=== PATIENT | female | born 1940 | race Caucasian/White ===

== ENCOUNTER 2016-10-19 00:23 | Emergency (ER) | payer MEDICARE, OTHER ==
[2016-10-19] MEDS ORDERED: LIDOCAINE VIS-MYLANTA 30 ML UD PO ONE ×2 (00:44→00:48)
[2016-10-19 00:57] VITALS: TEMP 98.3; O2SAT 95
[2016-10-19] MEDS ORDERED: SUCRALFATE 1 GM/10 ML 1 GM UD PO ONE (01:09)
--- NOTE | 2016-10-19 01:12 | ED.PDOC ---
History of Present Illness - General Chief Complaint: Abdominal Pain Stated Complaint: epigastric pain, chest pressure, back pain Time Seen by Provider: 10/19/16 00:40 Source: patient Exam Limitations: no limitations - History of Present Illness Initial Comments: the patient is a 76-year-old female presenting to the emergency room secondary to epigastric discomfort that started in the left upper quadrant and moved to the right upper quadrant and then moved up into the substernal area starting approximately one half hour prior to arrival. In all of the areas it was a pressure burning type sensation. No palpitations. No syncope or near- syncope. No radiation to the shoulder or jaw. She did have some discomfort to her back. Discomfort is moderate at about a 5-6/10. discomfort does not seem to be positional or made worse with exertion. It is not made worse with deep breathing. It is not made worse with twisting or turning. Timing/Duration: 1/2 hour Severity: moderate Improving Factors: nothing Worsening Factors: nothing Associated Symptoms: chest pain, loss of appetite, malaise, nausea/vomiting Allergies/Adverse Reactions: Allergies Atorvastatin [From Lipitor] Allergy (Verified 10/19/16 00:51) Carvedilol [From Coreg] Allergy (Verified 10/19/16 00:51) Levofloxacin [From Levaquin] Allergy (Verified 10/19/16 00:51) Metformin Allergy (Verified 10/19/16 00:51) Home Medications: Ambulatory Orders Ascorbic Acid [Vitamin C] 500 mg PO DAILY 10/19/16 Cholecalciferol [Vitamin D] 400 iu PO DAILY 10/19/16 Glyburide 10 mg PO BID 10/19/16 Insulin NPH Isophane & Reg (Hu [Novolin 70/30 (70-30) 100 Unit/ml] 12 inj SC AC 10/19/16 Insulin NPH Isophane & Reg (Hu [Novolin 70/30 (70-30) 100 Unit/ml] 15 inj SC BEDTIME 10/19/16 Lisinopril [Zestril] 20 mg PO BID 10/19/16 Nitroglycerin 0.4 mg SL PRN 10/19/16 Review of Systems - Review of Systems Constitutional: States: no symptoms reported EENTM: States: no symptoms reported Respiratory: States: no symptoms reported Cardiology: States: chest pain Gastrointestinal/Abdominal: States: abdominal pain, nausea Genitourinary: States: no symptoms reported Musculoskeletal: States: back pain Skin: States: no symptoms reported Neurological: States: anxiety All other Systems: No Change from Baseline Past Medical History (General) - Patient Medical History Hx Seizures: No Hx Stroke: No Hx Dementia: No Hx Asthma: No Hx of COPD: No Hx Cardiac Disorders: No Hx Congestive Heart Failure: No Hx Pacemaker: No Hx Hypertension: Yes Hx Thyroid Disease: No Hx Diabetes: No Hx Gastroesophageal Reflux: No Hx Renal Disease: No Hx Cancer: No Hx of HIV: No Hx Hepatitis C: No Hx MRSA: No - Vaccination History Hx Tetanus, Diphtheria Vaccination: No Hx Influenza Vaccination: No Hx Pneumococcal Vaccination: No Immunizations Up to Date: No - Social History Hx Tobacco Use: No Hx Alcohol Use: No Hx Substance Use: No Hx Substance Use Treatment: No Hx Depression: No Feels Threatened In Home Enviroment: No Feels Threatened In a Relationship: No Hx Physical Abuse: No Hx Emotional Abuse: No Hx Suspected Abuse: No Family Medical History - Family History Mother Living Status: Cause of : heart attack Physical Exam - Physical Exam General Appearance: Alert, Anxious Eye Exam: bilateral normal Ears, Nose, Throat: normal ENT inspection, normal pharynx Neck: non-tender, full range of motion, supple Respiratory: chest non-tender, lungs clear, normal breath sounds, no respiratory distress, no accessory muscle use Cardiovascular/Chest: normal peripheral pulses, regular rate, rhythm, no edema Peripheral Pulses: radial,right: 2+, radial,left: 2+ Gastrointestinal/Abdominal: soft, other - the patient does have some epigastric discomfort palpation. No rebound or peritoneal signs. No pulsatile palpable masses. Rectal Exam: deferred Back Exam: normal inspection, no CVA tenderness, no vertebral tenderness Extremity: normal range of motion, non-tender, normal inspection, no pedal edema , normal capillary refill Neurologic: alert, normal mood/affect, oriented x 3 Skin Exam: normal color Comments: Vital Signs - 24 hr 10/19/16 10/19/16 00:27 00:38 Temperature 98.3 F Pulse Rate [ 74 74 monitor] Respiratory 20 20 Rate Blood Pressure 185/76 [Right Arm] O2 Sat by Pulse 95 Oximetry Progress - Progress Progress: 10/19/16 01:13 the patient is a 76-year-old female presenting with epigastric pain that is somewhat roving up into the substernal area. The patient responded very well to a GI cocktail. EKG is reassuring. The patient was given a dose of Carafate and Pepcid here. I would recommend she take Pepcid twice daily for the next 2 weeks and then once daily after that. She needs to keep well- hydrated. Maalox can be used additionally as needed for gastritis and esophagitis symptoms. She needs to keep her follow-up in the very near future for her exercise tolerance test. She needs to return here to the emergency room for any recurrence of symptoms that is not responsive to treatment above. The patient defers further laboratory and radiological testing at this time. Strict ER warnings were given. Diagnosis is gastritis and esophagitis. Departure - Departure Clinical Impression: Esophagitis Disposition: Discharge to Home or Self Care Condition: Fair Departure Forms: ED Discharge - Pt. Copy, Patient Portal Self Enrollment Instructions: DI for Abdominal Pain-Adult Diet: bland diet Activity: increase activity as tolerated Referrals: Tunde Leigh III, MD [Primary Care Provider] - 1-5 Days Home Medications: Ambulatory Orders Ascorbic Acid [Vitamin C] 500 mg PO DAILY 10/19/16 Cholecalciferol [Vitamin D] 400 iu PO DAILY 10/19/16 Glyburide 10 mg PO BID 10/19/16 Insulin NPH Isophane & Reg (Hu [Novolin 70/30 (70-30) 100 Unit/ml] 12 inj SC AC 10/19/16 Insulin NPH Isophane & Reg (Hu [Novolin 70/30 (70-30) 100 Unit/ml] 15 inj SC BEDTIME 10/19/16 Lisinopril [Zestril] 20 mg PO BID 10/19/16 Nitroglycerin 0.4 mg SL PRN 10/19/16 Additional Instructions: the patient is a 76-year-old female presenting with epigastric pain that is somewhat roving up into the substernal area of a fairly short duration. The patient responded very well to a GI cocktail. EKG is reassuring. The patient was given a dose of Carafate and Pepcid here. I would recommend she take Pepcid twice daily for the next 2 weeks and then once daily after that. She needs to keep well-hydrated. Maalox can be used additionally as needed for gastritis and esophagitis symptoms. She needs to keep her follow-up in the very near future for her exercise tolerance test. She needs to return here to the emergency room for any recurrence of symptoms that is not responsive to treatment above. Strict ER warnings were given. Diagnosis is gastritis and esophagitis.
[2016-10-19 01:22] VITALS: BP 186/75
[2016-10-19] MEDS ORDERED: FAMOTIDINE 20 MG TAB PO SCH (01:30)
== END 2016-10-19 01:22 | disposition home or self-care (01) ==
LOC: ER 00:23
DX: K20.9 Esophagitis, unspecified (principal); I10 Essential (primary) hypertension; Z88.8 Allergy status to other drugs, medicaments and biological substances; Z79.899 Other long term (current) drug therapy

== ENCOUNTER → 2016-11-10 | Outpatient (CLI) | payer MEDICARE, OTHER | END | disposition home or self-care (01) | LOC: GMAL 10:17 | PROVIDERS: ATTEND Family Medicine | DX: D51.3 Other dietary vitamin B12 deficiency anemia (principal); E55.9 Vitamin D deficiency, unspecified ==

== ENCOUNTER → 2017-05-21 | Outpatient (CLI) | payer MEDICARE, OTHER ==
--- NOTE | 2017-05-22 07:32 | MRI ---
Procedure: MR KNEE WITHOUT IV CONTRAST Exam Date: 05/21/2017 12:00 AM CDT Ordering Provider: MAGDALENA WU Clinical Indication: RT KNEE PAIN Comparison: None TECHNIQUE: Multiplanar, multisequence MR images of the right knee were obtained. FINDINGS: ACL and PCL are intact. Free edge fraying of the body of the medial meniscus. There is resultant full-thickness chondrosis seen within the weightbearing medial femoral condyle with associated subchondral edema. There is mild meniscal extrusion without apparent meniscal cyst formation or displaced meniscal fragment. MCL is intact. The lateral meniscus is intact. Small focal full-thickness defect seen within the central weightbearing lateral femoral condyle. Otherwise, the remaining lateral compartment cartilage is intact. Lateral collateral ligamentous complex is intact. Patellofemoral extensor mechanism is unremarkable. Patchy multifocal full-thickness chondrosis seen within both patellar facets and at the patellar apex. Trochlear cartilage is grossly preserved. No large joint effusion yet there is a 1.4 x 0.9 cm intra-articular loose body seen within the intercondylar notch. No Patel cyst appreciated. Bone marrow is otherwise unremarkable. IMPRESSION: 1. Small free edge tear of the body of the medial meniscus with resultant medial more so than lateral compartment full-thickness chondrosis. 2. There is also patellofemoral full-thickness chondrosis. 3. Small joint effusion with osseous intercondylar notch loose body. Electronically signed by: Jimmy Travis MD 05/22/2017 7:31 AM CDT
== END | disposition home or self-care (01) ==
LOC: MRI 10:32
PROVIDERS: ATTEND Family Medicine
DX: M25.561 Pain in right knee (principal)

== ENCOUNTER → 2017-09-30 | Outpatient (CLI) | payer MEDICARE, OTHER ==
--- NOTE | 2017-09-30 11:05 | RAD ---
History: Preoperative evaluation. Chest x-ray: PA and lateral views are compared with 2012 exam. Cardiac silhouette is upper normal. No pulmonary infiltrate or effusion. Mild diffuse osteopenia. IMPRESSION: Grossly stable chest since 2012. Electronically signed by: Jessi Mercado MD 09/30/2017 11:04 AM [employer] Workstation: [id number]
== END ==
LOC: LAB.O 08:46
PROVIDERS: ATTEND Orthopaedic Surgery
DX: Z01.812 Encounter for preprocedural laboratory examination (principal); N39.0 Urinary tract infection, site not specified; E10.9 Type 1 diabetes mellitus without complications

== ENCOUNTER → 2018-02-21 | Outpatient (CLI) | payer MEDICARE, OTHER | LOC: GMAL 10:28 | PROVIDERS: ATTEND Family Medicine | DX: D51.3 Other dietary vitamin B12 deficiency anemia (principal); R53.82 Chronic fatigue, unspecified; E55.9 Vitamin D deficiency, unspecified ==

== ENCOUNTER → 2018-02-25 | Outpatient (CLI) | payer MEDICARE, OTHER ==
--- NOTE | 2018-02-25 11:57 | US ---
EXAM DESCRIPTION: Abdomen,Complete CLINICAL HISTORY: THROMBOCYTOPENIA COMPARISON: None Available. TECHNIQUE: Complete abdominal ultrasound FINDINGS: Visualized portions of the pancreas are unremarkable. No peripancreatic fluid. Bowel gas obscures some areas. Normal caliber of the aorta. Normal appearance of the inferior vena cava. Liver parenchyma is homogeneous in texture with increased echogenicity consistent with hepatic steatosis. No liver mass or intrahepatic bile duct dilatation. No liver surface irregularity. Normal appearance of hepatic veins and portal vein. Gallbladder appears normal with no intraluminal stones. No gallbladder wall thickening. Common bile duct is normal in caliber measuring 4.0 mm. The right kidney measures 9.8 cm in length. Normal renal cortical echogenicity. The renal cortical thickness appears normal. No right renal mass, shadowing stone or cyst. There is no hydronephrosis. Spleen is mildly enlarged measuring 12.8 cm in length. No focal splenic lesion. The left kidney measures 8.6 cm in length. This is small suggesting scarring or senescent change. Correlate with renal function tests. Normal renal cortical echogenicity. The renal cortical thickness appears normal. No left renal mass, shadowing stone or cyst. There is no hydronephrosis. IMPRESSION: Diffuse hepatic steatosis. Mild splenomegaly. Small left kidney. Correlate with renal function tests. Electronically signed by: Emerson Ariza MD 02/25/2018 11:55 AM CDT
== END ==
LOC: US 08:00
PROVIDERS: ATTEND Family Medicine
DX: D69.6 Thrombocytopenia, unspecified (principal); K76.0 Fatty (change of) liver, not elsewhere classified; R16.1 Splenomegaly, not elsewhere classified

== ENCOUNTER → 2019-10-26 | Outpatient (CLI) | payer MEDICARE, OTHER | LOC: GMAL 11:27 | PROVIDERS: ATTEND Family Medicine | DX: D51.3 Other dietary vitamin B12 deficiency anemia (principal); E55.9 Vitamin D deficiency, unspecified; I10 Essential (primary) hypertension; E11.9 Type 2 diabetes mellitus without complications; E78.49 Other hyperlipidemia; M25.572 Pain in left ankle and joints of left foot; Z79.899 Other long term (current) drug therapy ==

== ENCOUNTER 2020-02-18 12:38 | Emergency (ER) | payer MEDICARE, OTHER ==
[2020-02-18] MEDS ORDERED: ASPIRIN TABLET 325 MG TAB ONE (12:49)
--- NOTE | 2020-02-18 13:16 | ED.PDOC ---
History of Present Illness - General Chief Complaint: Chest Pain/MN Stated Complaint: chest pain Time Seen by Provider: 02/18/20 12:51 - History of Present Illness Initial Comments: 79 yo F comes in with chest pain x 1 day. Started at back radiates to jaw, no associated shortness of breath, n/v. Pain is continuous, not worse with activity. Was at [facility] was not acting like self so daughter brought her in. No cardiac hx but does have hx of dm, htn. While at [facility] patient became confused. No focal weakness, slurred speech or LOC. Patient states she continues to have chest pain and a headache. Nitro Today/Relief: no nitro taken today Allergies/Adverse Reactions: Allergies Atorvastatin [From Lipitor] Allergy (Verified 02/18/20 12:54) Carvedilol [From Coreg] Allergy (Verified 02/18/20 12:54) Levofloxacin [From Levaquin] Allergy (Verified 02/18/20 12:54) Metformin Allergy (Verified 02/18/20 12:54) Home Medications: Ambulatory Orders Ascorbic Acid [Vitamin C] 500 mg PO DAILY 10/19/16 Cholecalciferol [Vitamin D] 400 iu PO DAILY 10/19/16 Review of Systems - Review of Systems Constitutional: Denies: diaphoresis, fever, malaise EENTM: States: blurred vision. Denies: eye pain, ear pain, ear discharge Respiratory: Denies: cough, short of breath, wheezing Cardiology: States: chest pain. Denies: edema, palpitations, syncope Gastrointestinal/Abdominal: Denies: diarrhea, nausea, vomiting Genitourinary: Denies: dysuria, frequency Musculoskeletal: Denies: joint pain, joint swelling, neck pain Skin: Denies: dryness, rash Neurological: States: headache. Denies: anxiety, numbness, paresthesia, seizure, tingling, tremors, weakness Endocrine: Denies: excessive sweating, increased urine Hematologic/Lymphatic: Denies: anemia, blood clots Past Medical History (General) - Patient Medical History Hx Seizures: No Hx Stroke: No Hx Dementia: No Hx Asthma: No Hx of COPD: No Hx Cardiac Disorders: No Hx Congestive Heart Failure: No Hx Pacemaker: No Hx Hypertension: Yes Hx Thyroid Disease: No Hx Diabetes: No Hx Gastroesophageal Reflux: No Hx Renal Disease: No Hx Cancer: No Hx of HIV: No Hx Hepatitis C: No Hx MRSA: No - Vaccination History Hx Tetanus, Diphtheria Vaccination: No Hx Influenza Vaccination: No Hx Pneumococcal Vaccination: No - Social History Hx Tobacco Use: No Hx Alcohol Use: No Hx Substance Use: No Hx Substance Use Treatment: No Hx Depression: No Hx Physical Abuse: No Hx Emotional Abuse: No Hx Suspected Abuse: No - Female History Patient is a Female of Child Bearing Age (10 -59 yrs old): No Family Medical History - Family History Mother Living Status: Cause of : heart attack Physical Exam - Physical Exam General Appearance: Alert, Comfortable, No apparent distress Eyes, Ears, Nose, Throat Exam: PERRL/EOMI, normal ENT inspection Neck: non-tender, full range of motion, supple, normal inspection, carotid bruit Respiratory: chest non-tender, lungs clear, normal breath sounds, no respiratory distress, no accessory muscle use, respiratory distress Cardiovascular/Chest: normal peripheral pulses, regular rate, rhythm, no edema, no murmur Peripheral Pulses: radial,right: 2+, radial,left: 2+, dorsalis pedis,right: 2+, dorsalis pedis,left: 2+ Gastrointestinal/Abdominal: normal bowel sounds, non tender, soft Rectal Exam: deferred Extremity: normal range of motion, non-tender, normal inspection, no pedal edema, no calf tenderness Neurologic: wool hanker II-XII nml as tested, no motor/sensory deficits, alert, normal mood/affect, oriented x 3, other - cranial nerves intact, 5/5 phillip throughout. no pronator drift, NIH score 0. Skin Exam: normal color, warm/dry Lymphatic: no adenopathy Progress - Progress Progress: Patient placed on brake engineer, EKG shows NSR with rate 711 with t wave inversion in inferior leads which was not present at previous ekg september 2017. hx of negative stress test in 4 years prior. Vital signs were unremarkable except for HTN orginaly 200/96, now 180/88.will get cxr, ct head, troponin. Patient give 325 mg aspirin. CXR showed no acute cardiopulmonary abnormalities. Physical exam was negative for any focal defcit. Her NIH score was 0. CBC and CMP were unremarkable. troponin was 2.32, CT head showed evidence of possible acute vs subacute stroke. herpain drip held due to unsure about current stroke. Talked to radiology CTA showed partial non occlusive let medial cerebral artery lesion. Age uncertain. CTA neck and head: Nonocclusive filling defect within the left middle cerebral artery. The data reviewed when caring for this patient included: nurse notes etc. The history and assessments from nurses notes were reviewed and considered, and the patient's home medication list was also reviewed and considered. My assessment and the results of testing completed here in the ED were discussed with the patient/family. All questions were answered, and they express understanding of my assessment and the plan. Originally [facility], but beds full at both [facility] and [facility]. billing code [id number] 02/18/20 13:15 02/18/20 15:31 02/18/20 18:10 - Results/Orders Results/Orders: EKG Shows NSR with rate of 71, New t wave inversions in inferior leads not seen on previous on ekg 09/30/2017. PVC. Departure - Departure Clinical Impression: NSTEMI (non-ST elevated myocardial infarction), CVA (cerebral vascular accident) Disposition: Discharge to Home or Self Care Condition: Fair Departure Forms: ED Discharge - Pt. Copy, Patient Portal Self Enrollment Instructions: DI for Chest Pain Referrals: Tunde Leigh III, MD [Primary Care Provider] - 1-2 Weeks Home Medications: Ambulatory Orders Ascorbic Acid [Vitamin C] 500 mg PO DAILY 10/19/16 Cholecalciferol [Vitamin D] 400 iu PO DAILY 10/19/16 Decision To Admit - Decistion To Admit Decision to Admit Reason: Medical Nature Transfer to Outside Facility - Transfer Information Decision to Transfer Date: 02/18/20 Decision to Transfer Time: 18:00 Reason for Transfer: required specialist not available Accepting Provider:: Er to ER Accepting Facility: [facility]
--- NOTE | 2020-02-18 13:54 | CT ---
EXAM: CT head CLINICAL INDICATION: Confusion COMPARISON: There is no previous study for comparison. TECHNIQUE: CT scan was done using contiguous axial 5 mm sections through the brain. This exam was performed according to our departmental dose-optimization program, which includes automated exposure control, adjustment of the mA and/or kV according to patient size and/or use of iterative reconstruction technique. FINDINGS: There is no midline shift, mass effect, or extraaxial fluid collection. There is no evidence of acute intracranial hemorrhage, mass lesion, or cerebral edema. Mild diffuse cerebral atrophy is noted. There are ill-defined low-density foci in the left occipital lobe suspicious for an area of acute or subacute infarct. The remainder of the brain is unremarkable. IMPRESSION: Low-density foci in the left occipital lobe suspicious for acute or subacute infarct. MRI of the brain is recommended for further evaluation. Electronically signed by: Jaylen Ruiz MD 02/18/2020 1:52 PM CDT
--- NOTE | 2020-02-18 14:09 | RAD ---
EXAM: XR Chest, 2 Views CLINICAL HISTORY: chest xray TECHNIQUE: Frontal and lateral views of the chest. COMPARISON: 09/30/2017. FINDINGS: Lungs: Unremarkable. No consolidation. Pleural space: Unremarkable. No pneumothorax. Heart: Unremarkable. No cardiomegaly. Mediastinum: Unremarkable. Bones/joints: Unremarkable. IMPRESSION: No abnormality noted. Electronically signed by: Chelsey Cornell MD 02/18/2020 2:08 PM CDT
[2020-02-18 15:14] VITALS: O2SAT 97
[2020-02-18 15:41] VITALS: BP 191/93; TEMP 97.8
== END 2020-02-18 15:40 | disposition short-term general hospital (02) ==
LOC: ER 12:38
DX: I21.4 Non-ST elevation (NSTEMI) myocardial infarction (principal); I63.9 Cerebral infarction, unspecified; I49.3 Ventricular premature depolarization; I10 Essential (primary) hypertension; Z79.899 Other long term (current) drug therapy; Z88.8 Allergy status to other drugs, medicaments and biological substances; Z88.1 Allergy status to other antibiotic agents

== ENCOUNTER → 2020-05-14 | Outpatient (CLI) | payer MEDICARE, OTHER | LOC: GMAL 14:20 | PROVIDERS: ATTEND Family Medicine | DX: R53.82 Chronic fatigue, unspecified (principal); E11.9 Type 2 diabetes mellitus without complications; I21.4 Non-ST elevation (NSTEMI) myocardial infarction; Z79.899 Other long term (current) drug therapy ==